=== PATIENT | male | born 1995 | race Caucasian/White ===

== ENCOUNTER 2017-10-17 22:01 | Inpatient (IN) | payer BC, OTHER ==
[~2017-10-17] VITALS: Ht 180.3 cm; Wt 83.9 kg
[2017-10-17 23:40] VITALS: BP 126/81
--- NOTE | 2017-10-17 23:40 | NUR ---
Pre-Admission Patient was seen in intake office. Patient is noted to be mildly intoxicated but stable at this time to continue with admission assessment. V/S noted as: 126/81, 86, 98.0, 18, 96%, 0/10. Policies on medication disposal explained and patient is able to verbalize understanding. Will continue with admission process to unit.
[2017-10-17] MEDS ORDERED: GABA600T2 PO (23:55)
[2017-10-17] MEDS ORDERED: QUET100T PO (23:56)
[2017-10-18] MEDS ORDERED: TETR15DR86 EACHEYE (00:20)
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
[2017-10-18] MEDS ORDERED: IBUPROFEN 600 MG TABLET PO PRN (00:45)
[2017-10-18] MEDS ORDERED: LOPERAMIDE HCL 2 MG CAPSULE PO PRN ×2 (00:45)
[2017-10-18] MEDS ORDERED: DICYCLOMINE HCL 20 MG TABLET PO PRN (00:45)
[2017-10-18] MEDS ORDERED: BUPRENORPHINE HCL 2 MG TAB.SUBL SL PRN (00:45)
[2017-10-18] MEDS ORDERED: MIRALAX 17 GM POWD.PACK PO PRN (00:45)
[2017-10-18] MEDS ORDERED: ONDANSETRON ODT 4 MG TAB.RAPDIS SL PRN (00:45)
[2017-10-18] MEDS ORDERED: ONDANSETRON 4 MG/2 ML VIAL IM PRN (00:45)
[2017-10-18] MEDS ORDERED: diphenhydrAMINE 50 MG CAPSULE PO PRN (00:45)
[2017-10-18] MEDS ORDERED: METHOCARBAMOL 750 MG TABLET PO PRN (00:45)
[2017-10-18] MEDS ORDERED: ACETAMINOPHEN 325 MG TABLET PO PRN (00:45)
[2017-10-18] MEDS ORDERED: MAG HYDROX/AL HYDROX/SIMETH 30 ML LIQUID UDC PO PRN (00:45)
[2017-10-18] MEDS ORDERED: MAGNESIUM HYDROXIDE 30 ML LIQUID UDC PO PRN (00:45)
[2017-10-18] MEDS ORDERED: HYDROXYZINE PAMOATE 25 MG CAPSULE PO PRN (00:45)
[2017-10-18 00:49] VITALS: BP 127/85
[2017-10-18] MEDS ORDERED: LORAZEPAM 1 MG TABLET PO ONE (01:00)
[2017-10-18 01:10] LABS: *AMPHETAMINE, URINE NEGATIVE (NEGATIVE); *BARBITURATE, URINE POSITIVE (NEGATIVE); *CANNABINOID, URINE POSITIVE (NEGATIVE); *COCCAINE, URINE POSITIVE (NEGATIVE); *OPIATE, URINE POSITIVE (NEGATIVE); *PHENCYCLIDINE SCREEN,URINE NEGATIVE (NEGATIVE)
--- NOTE | 2017-10-18 01:30 | NUR ---
PRN Medication Administration patient was noted to verbalize increased body aches, restlessness, increased anxiety, and inability of falling asleep. One time dose of Ativan 2mg administered with PRN Benadryl for inability of falling asleep and PRN Robaxin for increased body aches. All needs attended to promptly. Will continue to monitor.
[2017-10-18] MEDS ORDERED: METHOCARBAMOL 750 MG TABLET ONE (01:39)
[2017-10-18] MEDS ORDERED: LORAZEPAM 1 MG TABLET ONE (01:39)
[2017-10-18] MEDS ORDERED: diphenhydrAMINE 50 MG CAPSULE ONE (01:40)
--- NOTE | 2017-10-18 02:30 | NUR ---
PRN medication Reassessment Patient is noted in bed, sleeping. Breathing even and non labored. Patient was given one time dose of Ativan 2mg, PRN Benadryl, PRN Robaxin with all medications noted to be effective. Patient continues to sleep well with no interruptions noted. Will continue to monitor.
[2017-10-18 04:28] VITALS: BP 120/66
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
--- NOTE | 2017-10-18 07:30 | NUR ---
Start of shift note; Received report from night nurse. Patient is a 22 year old male admitted on 10/17/17 for Opiate dependence. Patient to be evaluated by MD today for Taper orders, medications were reported per endorsement and to be reconciled by MD. Patient reported history of anxiety, lower back pain and seizures d/t Benzo withdrawals. Patient is on full code status, regular diet, NKA. Patient refused blood work for LAB orders, educated patient regarding the importance of compliance to treatment plan, patient requested to get his blood draw done later in the afternoon. Will notify MD. All safety measures secured. Will continue to monitor patient.
[2017-10-18 08:00] VITALS: BP 129/72
[2017-10-18] MEDS ORDERED: NICOTINE 14 MG/24HR PATCH TD PRN (11:30)
[2017-10-18] MEDS ORDERED: NICOTINE POLACRILEX 4 MG GUM-PK OF TEN BC PRN (11:30)
[2017-10-18 12:00] VITALS: BP 106/72
[2017-10-18 12:00] LABS: BASOPHILS % (AUTO) 0.4 % (0.0-2.0); EOSINOPHILS # (AUTO) 0.6 K/uL (0.0-0.7); EOSINOPHILS % (AUTO) 7.7 % (0.0-7.0); HEMATOCRIT 46.3 % (36.7-47.1); HEMOGLOBIN 15.9 g/dL (12.5-16.3); LYMPHOCYTES # (AUTO) 2.1 K/uL (20.0-40.0); LYMPHOCYTES % (AUTO) 27.5 % (20.5-51.5); MEAN CORPUSCULAR HGB CONC 34 g/dL (32.5-36.3); MEAN CORPUSCULAR VOLUME 90.3 fL (73.0-96.2); MONOCYTES # (AUTO) 0.6 K/uL (2.0-10.0); MONOCYTES % (AUTO) 7.8 % (0.0-11.0); NEUTROPHILS # (AUTO) 4.4 K/uL (1.8-8.9); NEUTROPHILS % (AUTO) 56.6 % (38.5-71.5); PLATELET COUNT (AUTO) 175 K/uL (152-348); RED BLOOD CELL COUNT(AUTO) 5.13 MIL/uL (4.06-5.63); WHITE BLOOD COUNT (AUTO) 7.8 K/uL (3.6-10.2)
[2017-10-18] MEDS: BUPRENORPHINE HCL 2 MG TAB.SUBL SL SCH ×3 (12:03→21:31)
[2017-10-18] MEDS: GABAPENTIN 300 MG CAPSULE PO SCH ×2 (12:03→16:40)
[2017-10-18 12:13] LABS: ETHANOL < 3 MG/DL (0-0)
[2017-10-18 12:15] LABS: ALANINE AMINOTRANSFERASE 20 U/L (16-63); ALKALINE PHOSPHATASE 78 U/L (50-136); ASPARTATE AMINOTRANSFERASE 12 U/L (15-37); BILIRUBIN,TOTAL 0.3 mg/dL (0.2-1.0); CARBON DIOXIDE 27 mmol/L (21-32); CHLORIDE 102 mmol/L (98-107); GLUCOSE 86 mg/dL (74-106); POTASSIUM 4.8 mmol/L (3.5-5.1); TOTAL PROTEIN, SERUM 6.7 g/dL (6.4-8.2); UREA NITROGEN, BLOOD 18 mg/dL (7-18)
[2017-10-18 12:25] LABS: THYROID STIMULATING HORMONE 0.967 mIU/mL (0.358-3.740)
[2017-10-18 16:00] VITALS: BP 115/67
[2017-10-18] MEDS ORDERED: LORAZEPAM 1 MG TABLET PO PRN (18:45)
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
--- NOTE | 2017-10-18 19:05 | NUR ---
End of shift note; Patient is AOX4. Patient is a 22 year old male admitted on 10/17/17 for Opiate dependence. Patient reported history of anxiety, lower back pain and seizures d/t Benzo withdrawals. Patient is on full code status, regular diet, NKA. Patient was started on Subutex taper today, noted to be effective. Patient remained compliant with treatment plan and medication regime. All safety measures secured. Met all needs.
[2017-10-18 20:43] VITALS: BP 137/87
[2017-10-18] MEDS ORDERED: GABAPENTIN 300 MG CAPSULE PO SCH (21:00)
[2017-10-18] MEDS: QUETIAPINE FUMARATE 100 MG TABLET PO PRN (21:30)
[2017-10-18] MEDS: GABAPENTIN 400 MG CAPSULE PO SCH (21:30)
--- NOTE | 2017-10-18 21:30 | NUR ---
PRN Medication Administration Patient is noted restless, verbalizing increased anxiety, verbalizing increased agitation and frustration. Patient also requesting sleep medication and states "I want to take my sleep medications because I want to try and go to sleep soon." PRN Ativan 2mg and PRN Seroquel administered. Will continue to monitor.
--- NOTE | 2017-10-18 22:30 | NUR ---
PRN Medication Reassessment Patient is noted in the hallway eating Ice cream. patient is able to state "im going to go lay down soon. Im just going to go smoke and come back to sleep." Patient returned to room from smoking patio and noted to go to bed. No Agitation or increased anxiety verbalized or noted. PRN Medications noted to be effective. Will continue to monitor.
[2017-10-19 00:15] VITALS: BP 135/80
[2017-10-19 04:11] VITALS: BP 116/72
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
[2017-10-19 07:06] LABS: HEPATITIS B SURFACE AG Negative (Negative)
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
[2017-10-19 08:00] VITALS: BP 126/82
[2017-10-19] MEDS ORDERED: TUBERCULIN,PURIF.PROT.DERIV. 5 TU/0.1 ML TEST ID ONE (09:00)
[2017-10-19] MEDS: BUPRENORPHINE HCL 2 MG TAB.SUBL SL SCH ×3 (09:43→21:42)
[2017-10-19] MEDS: GABAPENTIN 400 MG CAPSULE PO SCH ×3 (09:44→21:41)
[2017-10-19 12:00] VITALS: BP 122/73
--- NOTE | 2017-10-19 15:14 | NUR ---
Endorsement Pt endorsed to day shift nurse, pt is A&Ox4 in stable condition with no s/s of acute distress noted or verbalized, plan of care discussed all pertinent information given.
--- NOTE | 2017-10-19 15:31 | NUR ---
Report received from previous nurse. Patient is AOX4. Will closely monitor patient.
[2017-10-19 16:00] VITALS: BP 126/73
--- NOTE | 2017-10-19 18:14 | NUR ---
End of shift note; Patient is AOX4. Patient is a 22 year old male admitted on 10/17/17 for Opiate dependence. Patient reported history of anxiety, lower back pain and seizures d/t Benzo withdrawals. Patient is on full code status, regular diet, NKA. Patient was placed on Subutex taper, noted to be effective. Patient remained compliant with treatment plan and medication regime. Patient's last COWS score is 4 at 1600. All safety measures secured. Met all needs.
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
[2017-10-19 20:41] VITALS: BP 138/81
[2017-10-19] MEDS: QUETIAPINE FUMARATE 100 MG TABLET PO PRN (21:40)
--- NOTE | 2017-10-19 21:40 | NUR ---
PRN Medication administration Patient verbalizing inability of falling asleep. PRN Seroquel administered as per order. Will continue to monitor.
--- NOTE | 2017-10-19 22:40 | NUR ---
PRN Medication Reassessment Patient noted in bed sleeping. Breathing even and non labored. Patient was given PRN Seroquel for inability of falling asleep. Medication noted to be effective. Patient noted to sleep well with no interruptions noted. No facial grimacing or restlessness noted. All needs attended to promptly. Will continue to monitor.
[2017-10-20 00:13] VITALS: BP 125/71
[2017-10-20 04:08] VITALS: BP 118/79
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
[2017-10-20 08:00] VITALS: BP 122/82
[2017-10-20] MEDS ORDERED: BUPRENORPHINE HCL 2 MG TAB.SUBL SL SCH (09:00)
[2017-10-20] MEDS: GABAPENTIN 400 MG CAPSULE PO SCH ×3 (09:15→21:05)
[2017-10-20 12:00] VITALS: BP 118/86
[2017-10-20] MEDS ORDERED: GUAIFENESIN/DEXTROMETHORPHAN 5 ML UDC PO PRN (13:30)
[2017-10-20] MEDS: BUPRENORPHINE HCL 2 MG TAB.SUBL SL SCH ×2 (15:21→21:05)
[2017-10-20 16:00] VITALS: BP 125/82
--- NOTE | 2017-10-20 19:13 | NUR ---
End Of Shift Patient is a 22 year old male admitted on 10/18/17 for Opiate Dependence and continues pt is full code regular diet on fall and seizure precautions denies any food or drug allergies, on a 5 day Subutex taper. VS monitored closely q 4 hours. Withdrawal symptoms were closely monitored. Initial COWS 7. Patient encouraged adequate PO fluid intake as tolerated. Patient presented with tremors and anxiety during the day. Last COWS 6. Per patient, Subutex been helping him with his withdrawal symptoms. Pt ate all of his meals. Pt did not received PRN medications. Patient encouraged to attend group therapies/sessions to learn new coping skills to recent relapse, patient denies SI/HI. Participated in group and therapy sessions. All needs met and attended
--- NOTE | 2017-10-20 19:15 | NUR ---
Start of shift note Received report from day shift nurse. Pt is a 22 yo male, A+Ox4, presenting to [facility] for Opiate/Cocaine dependence. Pt has NKA, is on Full code status, and on Regular diet. Pt is on Fall and Seizure precautions. Pt has HX of Anxiety, Seizure, and Lower back pain. Pt is on 5 day Subutex taper, tolerated well. No s/s of distress noted at this time. Respirations even and unlabored. Will continue to monitor.
[2017-10-20 20:34] VITALS: BP 140/69
[2017-10-20] MEDS: QUETIAPINE FUMARATE 100 MG TABLET PO PRN (22:23)
--- NOTE | 2017-10-20 22:23 | NUR ---
PRN Seroquel Pt c/o inability to sleep and requested for PRN Seroquel. Medication given and tolerated well. Will reassess within 1 HR. Will continue to monitor.
[2017-10-20] MEDS ORDERED: ALBU8.5H8 INH (22:58)
[2017-10-20] MEDS ORDERED: GABA800T2 PO (22:58)
[2017-10-20] MEDS ORDERED: PROP20TA7 PO (22:58)
[2017-10-20] MEDS ORDERED: LISI10TA5 PO (22:58)
[2017-10-20] MEDS ORDERED: ESCI10TA55 PO (22:58)
[2017-10-20] MEDS ORDERED: VALA500T34 PO (22:58)
[2017-10-20] MEDS ORDERED: MIRT30TA7 PO (22:58)
--- NOTE | 2017-10-20 23:20 | NUR ---
PRN Seroquel Reassessment Medication effective. Pt is resting well in bed. No s/s of ASE/distress noted at this time. Respirations even and unlabored. Will continue to monitor.
[2017-10-21 00:22] VITALS: BP 135/71
[2017-10-21 04:10] VITALS: BP 132/74
--- NOTE | 2017-10-21 06:54 | NUR ---
End of shift note Pt is a 22 yo male, A+Ox4, presenting to [facility] for Opiate/Cocaine dependence. Pt has NKA, is on Full code status, and on Regular diet. Pt is on Fall and Seizure precautions. Pt has HX of Anxiety, Seizure, and Lower back pain. Pt is on 5 day Subutex taper, tolerated well. Pt was given PRN Seroquel @2223. Pt slept for a total of 7 HRS. Last COWS: 2 @0400. No s/s of distress noted at this time. Respirations even and unlabored. Will endorse to day shift nurse.
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
[2017-10-21 08:00] VITALS: BP 120/70
[2017-10-21] MEDS: BUPRENORPHINE HCL 2 MG TAB.SUBL SL SCH ×3 (09:27→21:45)
[2017-10-21] MEDS: GABAPENTIN 400 MG CAPSULE PO SCH ×3 (09:27→21:45)
[2017-10-21 12:00] VITALS: BP 115/70
[2017-10-21 16:00] VITALS: BP 122/75
--- NOTE | 2017-10-21 16:05 | NUR ---
Therapist prompted client to come into group today. Client agreed to attend.
--- NOTE | 2017-10-21 19:13 | NUR ---
End Of Shift Patient is a 22 year old male admitted on 10/18/17 for Opiate Dependence and continues pt is full code regular diet on fall and seizure precautions denies any food or drug allergies, on a 5 day Subutex taper. VS monitored closely q 4 hours. Withdrawal symptoms were closely monitored. Initial COWS 2. Patient encouraged adequate PO fluid intake as tolerated. Patient presented with tremors and anxiety during the day. Last COWS 3. Per patient, Subutex been helping him with his withdrawal symptoms. Pt ate all of his meals. Pt did not received PRN medications. Patient encouraged to attend group therapies/sessions to learn new coping skills to recent relapse, patient denies SI/HI. Participated in group and therapy sessions. All needs met and attended
[2017-10-21 20:09] VITALS: BP 121/77
[2017-10-21] MEDS: QUETIAPINE FUMARATE 100 MG TABLET PO PRN (21:45)
--- NOTE | 2017-10-21 21:45 | NUR ---
PRN Seroquel Pt c/o inability to sleep and requested for PRN Seroquel. Medication given and tolerated well. Will reassess within 1 HR. Will continue to monitor.
[2017-10-22 00:04] VITALS: BP 116/66
[2017-10-22 04:43] VITALS: BP 120/64
--- NOTE | 2017-10-22 06:38 | NUR ---
End of shift note Pt is a 22 yo male, A+Ox4, presenting to [facility] for Opiate/Cocaine dependence. Pt has NKA, is on Full code status, and on Regular diet. Pt is on Fall and Seizure precautions. Pt has HX of Anxiety, Seizure, and Lower back pain. Pt is on 5 day Subutex taper, tolerated well. Pt was given PRN Seroquel @2145. Pt slept for a total of 8 HRS. Last COWS: 3 @0400. No s/s of distress noted at this time. Respirations even and unlabored. Will endorse to day shift nurse.
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
[2017-10-22 08:00] VITALS: BP 111/66
[2017-10-22] MEDS: GABAPENTIN 400 MG CAPSULE PO SCH (08:32)
[2017-10-22] MEDS ORDERED: BUPRENORPHINE HCL 2 MG TAB.SUBL SL SCH (09:00)
--- NOTE | 2017-10-22 10:50 | NUR ---
AMA NOTE Pt left AMA, Pt refused to comply with treatment. Pt educated about the risks and consequences of leaving AMA, pt verbalized understanding but was adamant about leaving. Multiple staff members including doctors, patient advocates and nurses attempted to reason with pt without any success. VS WNL, skin intact pt denied any suicidal or homicidal ideations. Pt's MD were notified and aware. Pt was given a list of community resources , AMA forms explained and signed. all belongings returned to Pt. Pt left facility AMA on 10/22/17 at 1050.
== END 2017-10-22 10:50 | disposition left against medical advice (07) | DRG 894 ==
LOC: SRC 22:51
PROVIDERS: ADMIT Internal Medicine; ATTEND Internal Medicine
PROC: HZ2ZZZZ Detoxification Services for Substance Abuse Treatment (ICD-10-PCS; principal; 2017-10-17)
PROC: HZ31ZZZ Individual Counseling for Substance Abuse Treatment, Behavioral (ICD-10-PCS; 2017-10-19)
PROC: HZ41ZZZ Group Counseling for Substance Abuse Treatment, Behavioral (ICD-10-PCS; 2017-10-21)
DX: F11.23 Opioid dependence with withdrawal (principal); F12.90 Cannabis use, unspecified, uncomplicated; F17.210 Nicotine dependence, cigarettes, uncomplicated; Z59.1 Inadequate housing; G47.00 Insomnia, unspecified; Z91.89 Other specified personal risk factors, not elsewhere classified; F41.9 Anxiety disorder, unspecified; F14.10 Cocaine abuse, uncomplicated; F13.90 Sedative, hypnotic, or anxiolytic use, unspecified, uncomplicated
CPT/HCPCS: 36415; 70030-TC; 80307; 80345; 80349; 80353; 80361; 83735; 84443; 85025; 86592; 86705; 86803; 87340; 87806; G0480; Q0162; Q0163